=== PATIENT | female | born 1955 | race Caucasian/White ===

== ENCOUNTER 2023-02-01 07:09 | Day surgery (SDC) | payer BC ==
[2023-01-28 11:13] VITALS: BMI 21.5
[2023-02-01] MEDS ORDERED: Lidocaine 1% PF 5 ML VIAL ONE (10:13)
[2023-02-01] MEDS ORDERED: PROPOFOL 200 MG/20 ML VIAL ONE (10:13)
== END 2023-02-01 11:42 | disposition home or self-care (01) ==
LOC: SDC 07:09
PROVIDERS: ATTEND Internal Medicine Gastroenterology
PROC: 0DBK8ZZ Excision of Ascending Colon, Via Natural or Artificial Opening Endoscopic (ICD-10-PCS; principal; 2023-02-01)
DX: Z12.11 Encounter for screening for malignant neoplasm of colon (principal); D12.2 Benign neoplasm of ascending colon; F41.9 Anxiety disorder, unspecified; I49.9 Cardiac arrhythmia, unspecified; I50.9 Heart failure, unspecified; C85.90 Non-Hodgkin lymphoma, unspecified, unspecified site; Z95.810 Presence of automatic (implantable) cardiac defibrillator; Z88.2 Allergy status to sulfonamides; Z88.1 Allergy status to other antibiotic agents; Z79.01 Long term (current) use of anticoagulants; Z79.899 Other long term (current) drug therapy
CPT/HCPCS: 88305; J2704